=== PATIENT | female | born 1950 | race Native Hawaiian/Other Pacific Islander ===

== ENCOUNTER 2020-02-11 14:06 | Emergency (ER) | payer OTHER ==
[~2020-02-11] VITALS: Ht 149.9 cm; Wt 35.8 kg
[2020-02-11 16:10] VITALS: BP 124/74; TEMP 98.8
== END 2020-02-11 16:10 | disposition home or self-care (01) ==
LOC: ED 14:06
DX: G43.909 Migraine, unspecified, not intractable, without status migrainosus (principal)
CPT/HCPCS: 99282